=== PATIENT | female | born 1960 ===

== ENCOUNTER 2022-01-04 10:45 | Emergency (ER) | payer OTHER ==
[~2022-01-04] VITALS: Ht 157.5 cm; Wt 86.2 kg
[2022-01-04] MEDS ORDERED: CHLORTHALIDONE25 MG PO (12:10)
== END 2022-01-04 15:04 | disposition home or self-care (01) ==
LOC: ER 10:45
DX: K29.70 Gastritis, unspecified, without bleeding (principal)